=== PATIENT | female | born 1980 | race Caucasian/White ===

== ENCOUNTER → 2016-06-14 | Outpatient (CLI) | payer BC | LOC: M SMT 08:40 | PROVIDERS: ATTEND Advanced Practice Midwife | DX: Z13.79 Encounter for other screening for genetic and chromosomal anomalies (principal) ==

== ENCOUNTER → 2016-07-20 | Outpatient (CLI) | payer BC ==
--- NOTE | 2016-07-20 09:24 | REP ---
COMPLETE OB ULTRASOUND WITH DETAILED ANATOMY SCREENIN07/20/2016. Clinical history: Supervision of . Normal. Second trimester anatomy screen. By LMP, she is 20 weeks 1 day with EDC 12/06/2016. She reports a ultrasound at her OB office. I do not have that first trimester report. Findings. There is a single intrauterine gestation in vertex position. The cervix is 3.9 cm long and closed. Placenta is anterior without previa or abruption and shows grade zero maturation. Amniotic fluid volume is visually normal. biometry: BPD 5.2 cm 21 week 6 day HC 19.4 cm 21 weeks 4 days AC 16.2 cm 21 weeks 2 days FL 3.6 cm 21 weeks 3 days HL 3.2 cm 20 week 5 days CER 2.1 cm 20 weeks This gives average ultrasound age 21 weeks 1 day of EDC 11/29/2016. Estimated weight 422 grams or 14 ounces, is 97th percentile for dating based on LMP with 20 weeks 1 day EDC. heart rate 144 and regular. The anatomy screen shows cranial vault, lateral ventricles, choroid plexus, thalami, cavum septum pellucidum, cerebellum and cisterna magna, facial and profile views of the face and the lungs to be unremarkable. The four-chamber view is seen. There is an echogenic focus in the left ventricle, likely a calcification on the chordae tendineae. Ventricular outflow tracts, diaphragm, left-sided stomach bubble, three-vessel cord with cord insertion, kidneys and bladder, upper and lower extremities are all unremarkable. The spine is seen only in sagittal views with position limiting transverse view evaluation of the entire spine. Impression: 1. Single intrauterine gestation with average ultrasound age by today's study 21 weeks 1 day with EDC 11/29/2016, by LMP EDC 12/06/2016 and the estimated weight of 422 grams or 14 ounces is 97th percentile for dating based on that LMP. 2. Heart rate 144 and regular with a vertex position, closed cervix with 3.9 cm length and anterior grade zero placenta without previa or abruption. The amniotic fluid volume is normal. 3. Anatomy screen shows an echogenic focus in the left ventricle, likely on the chordae tendineae as a small calcification about 3 mm. This may be followed later in the second trimester. At that time, the spine should also be re-evaluated as transverse views could not be obtained today. No other finding. Signed by Clarence Issa MD 07/20/2016 05:38 P
== END ==
LOC: M RAD 07:01
PROVIDERS: ATTEND Specialist
DX: Z34.82 Encounter for supervision of other normal pregnancy, second trimester (principal)

== ENCOUNTER → 2016-08-10 | Outpatient (CLI) | payer BC ==
[2016-08-10 13:29] LABS: MEAN CORPUSCULAR HEMOGLOBIN 30.6 pg (27.0-33.0); MEAN CORPUSCULAR HGB CONC 33.3 g/dl (32.0-36.5); MEAN CORPUSCULAR VOLUME 91.9 fl (80.0-96.0); RED CELL DISTRIBUTION WIDTH 13.7 % (11.5-14.5)
--- NOTE | 2016-08-11 06:45 | REP ---
Clinical: Anatomical evaluation. Comparison: 07/20/2016 . Findings: Examination demonstrates a single live intrauterine in breech presentation. motion is identified by technologist. Placenta is noted anteriorly and grade zero without evidence for placenta previa or abruption. Amniotic fluid volume is normal. Cervix measures 3.9 cm in length and appears closed. No evidence for nuchal cord. Gestational age by LMP 23 weeks 1 day with MISSAEL 12/06/2016 . Gestational age by current measurements 24 weeks 3 days with MISSAEL 11/27/2016 . FHR equals 131 beats per minute. Estimated weight 710 grams ( 93rd percentile). Anatomical assessment demonstrates normal structures including cranium, choroid plexus, cavum, cerebellum/posterior fossa, facial features, lungs, four-chamber heart/ventricular outflow tracts, diaphragm, stomach, cord insertion/three-vessel cord, kidneys/bladder, spine, and extremities. Echogenic focus within the left cardiac ventricle likely prominent chordae tendineae. Impression: Single live intrauterine in breech presentation demonstrating appropriate interval growth. Prominent chordae tendineae. Anatomical assessment is otherwise complete and normal. Signed by Deepak Gonsales MD 08/11/2016 06:36 A
== END ==
LOC: M LAB 11:12 → M RAD 11:12
PROVIDERS: ATTEND Obstetrics & Gynecology
DX: Z34.82 Encounter for supervision of other normal pregnancy, second trimester (principal)

== ENCOUNTER → 2016-08-13 | Outpatient (CLI) | payer BC | LOC: M SMT 08-10 10:40 | PROVIDERS: ATTEND Obstetrics & Gynecology | DX: Z34.82 Encounter for supervision of other normal pregnancy, second trimester (principal) ==

== ENCOUNTER → 2016-11-09 | Outpatient (REF) | payer BC | LOC: M LAB REF 17:17 | PROVIDERS: ATTEND Advanced Practice Midwife | DX: Z34.83 Encounter for supervision of other normal pregnancy, third trimester (principal) ==

== ENCOUNTER 2016-12-01 05:16 | Inpatient (IN) | payer BC ==
[2016-12-01] VITALS (27 sets, daily range): BP systolic 84–135; BP diastolic 52–91
[2016-12-01] MEDS ORDERED: PENICILLIN G POTASSIUM IV 5 MU in D5W MINI-BAG PLUS 100 ML IV STA (06:02)
[2016-12-01] MEDS ORDERED: LACTATED RINGER'S 1000 ML IV STA (06:02)
[2016-12-01] MEDS ORDERED: PROMETHAZINE INJ 25 MG/ML VIAL (J2550) IV ONE (06:15)
[2016-12-01] MEDS ORDERED: BUTORPHANOL 2 MG/ML INJ (J0595) IV ONE (06:15)
[2016-12-01] MEDS: miSOPROStol 50 MCG 1/2 TAB (S0191) PO SCH ×2 (06:32→11:12)
[2016-12-01 06:37] LABS: MEAN CORPUSCULAR HGB CONC 33.4 g/dl (32.0-36.5); MEAN CORPUSCULAR VOLUME 86.9 fl (80.0-96.0); RED CELL DISTRIBUTION WIDTH 14.4 % (11.5-14.5); WHITE BLOOD COUNT 8.3 K/mm3 (4.0-10.0)
[2016-12-01] MEDS: PENICILLIN G POTASSIUM IV 2.5 MU in D5W 100 ML IV SCH ×4 (11:04→22:16)
--- NOTE | 2016-12-01 11:20 | HPE ---
DATE OF ADMISSION: 12/01/2016 36-year-old 2, para 0-0-1-0, estimated date of delivery 12/06/2016, who presents at 39 weeks 2 days with reports of rupture of membranes 0430 hours, clear fluid, reports irregular mild contractions. Fetus is active. Last normal menstrual period 03/01/2016 for estimated date of delivery (MISSAEL) 12/06/2016, sonogram at 9 weeks confirmed date. Anatomy scan within normal limits. Advanced maternal age [place] shows low risk. Appropriate care. OBSTETRICAL HISTORY: Miscarriage 2000. ALLERGIES: 1. She is allergic to ASPIRIN. MEDICAL/SURGICAL HISTORY: History of endometriosis. Laparoscopy. Appendectomy. Slow recovery from anesthesia. FAMILY HISTORY: Family history of hepatitis, asthma and autism. SOCIAL HISTORY: . Father of the baby present and supportive. Denies tobacco, alcohol, drugs or abuse. OBJECTIVE: Prepregnancy weight 184, total weight gain 25 pounds. A negative. Antibody negative. Received RhoGAM. Rubella immune. VDRL, hepatitis B, hepatitis C, HIV, gonorrhea and chlamydia all negative. [place] is low risk. Male fetus. 1-hour glucose 102 and group B strep is positive. Vital signs are stable. She is in no apparent distress. Heart rate is regular. Abdomen is soft, gravid, longitudinal lie. heart 135, moderate variability with accelerations. Rare contractions. Clear fluid draining per vagina. Positive Nitrazine, positive fern. Sterile vaginal exam fingertip, thick and high, difficult exam due to guarding. ASSESSMENT: Primipara at 39 plus gestation, premature rupture of membranes (PROM), category 1 tracing. PLAN: Admit. Group B strep prophylaxis. Misoprostol cervical ripening.
[2016-12-01] MEDS ORDERED: FENTANYL 2MCG/ML ROPIVACAINE 0.2% IN 0.9% NACL 200ML IVBAG As Ordered ONE (15:04)
[2016-12-01] MEDS ORDERED: ePHEDrine SULFATE 25 MG/5 ML(5MG/ML) SYRINGE As Ordered ONE (15:53)
[2016-12-01] MEDS ORDERED: diphenhydrAMINE INJ 50MG/ML VIAL (J1200) IV PRN (16:00)
[2016-12-01] MEDS ORDERED: ePHEDrine SULFATE 25 MG/5 ML(5MG/ML) SYRINGE IV PRN (16:00)
[2016-12-01] MEDS ORDERED: EPIDURAL COMMENT XX SCH (16:00)
[2016-12-01] MEDS ORDERED: FENTANYL/ROPIVACAINE/NACL BAG 200 ML EPIDURAL SCH (16:00)
[2016-12-01] MEDS ORDERED: REFRIGERATOR IV KEYS XX PRN (16:00)
[2016-12-01] MEDS ORDERED: LACTATED RINGER'S 1000 ML IV PRN (16:00)
[2016-12-01] MEDS ORDERED: NALOXONE INJ 0.4 MG/1 ML VIAL (J2310) IV PRN (16:00)
[2016-12-01] MEDS ORDERED: EPIDURAL/PCA KEYS XX PRN (16:00)
[2016-12-01] MEDS ORDERED: LR 1,000 ML IV SCH (16:22)
[2016-12-01] MEDS ORDERED: OXYTOCIN DRIP 30 UNITS in APPROPRIATE DILUENT 1 EA IV SCH (16:30)
[2016-12-02] VITALS (64 sets, daily range): BP systolic 83–128; BP diastolic 50–88
[2016-12-02] MEDS: ONDANSETRON 4MG/2ML VIAL (J2405) IV PRN ×2 (01:05→11:54)
[2016-12-02] MEDS: PENICILLIN G POTASSIUM IV 2.5 MU in D5W 100 ML IV SCH ×4 (02:15→16:30)
[2016-12-02] MEDS ORDERED: ceFAZolin 2 GM/D5W 50 ML IV BAG (J0690) As Ordered ONE (20:40)
[2016-12-02] MEDS ORDERED: BICITRA 30ML SOLN UDC As Ordered ONE (20:41)
[2016-12-02] MEDS ORDERED: LIDOCAINE 2% W/EPIN INJ 20ML **PRES FREE As Ordered ONE (20:41)
[2016-12-02] MEDS ORDERED: OXYTOCIN INJ 10 UNITS/ML VIAL (J2590) As Ordered ONE (21:16)
[2016-12-02] MEDS ORDERED: MORPHINE PRES-FREE INJ 10 MG/10 ML VIAL (J2274) As Ordered ONE (21:17)
[2016-12-02] MEDS ORDERED: KETOROLAC 60 MG/2 ML VIAL (J1885) As Ordered ONE (21:17)
[2016-12-02] MEDS ORDERED: NALBUPHINE HCL 10 MG/ML AMP (J2300) IV PRN (21:33)
[2016-12-02] MEDS ORDERED: METOCLOPRAMIDE INJ 10MG/2ML VIAL (J2765) IV PRN (21:33)
[2016-12-02] MEDS ORDERED: NALOXONE INJ 0.4 MG/1 ML VIAL (J2310) IV PRN ×2 (21:33)
[2016-12-02] MEDS ORDERED: ONDANSETRON 4MG/2ML VIAL (J2405) IV PRN ×3 (21:33→22:00)
[2016-12-02] MEDS: LR 1,000 ML IV SCH (21:55)
[2016-12-02] MEDS ORDERED: PERCOCET 5MG/325MG TAB PO PRN ×3 (22:00)
[2016-12-02] MEDS ORDERED: DOCUSATE SODIUM 100 MG CAP PO PRN (22:00)
[2016-12-02] MEDS ORDERED: OXYTOCIN DRIP 30 UNITS in APPROPRIATE DILUENT 1 EA IV ONE (22:00)
[2016-12-02] MEDS ORDERED: MEASLES,MUMPS,RUBELLA VACCINE INJ (MMR-II) (90707) SC SCH (22:00)
[2016-12-02] MEDS ORDERED: fentaNYL 100 MCG/2 ML INJECTION (J3010) IV PRN (22:00)
[2016-12-02] MEDS ORDERED: LR 1,000 ML IV SCH (22:00)
[2016-12-02] MEDS ORDERED: RHOGAM 300 MCG (1500 IU) INJ (J2790) IM SCH (22:00)
[2016-12-02] MEDS: NS 1,000 ML IV SCH (22:58)
[2016-12-02 23:14] LABS: MEAN CORPUSCULAR HEMOGLOBIN 29.6 pg (27.0-33.0); MEAN CORPUSCULAR HGB CONC 33.6 g/dl (32.0-36.5); MEAN CORPUSCULAR VOLUME 88.2 fl (80.0-96.0); RED CELL DISTRIBUTION WIDTH 15.1 % (11.5-14.5); WHITE BLOOD COUNT 12.5 K/mm3 (4.0-10.0)
[2016-12-03] VITALS (8 sets, daily range): BP systolic 82–145; BP diastolic 50–75
[2016-12-03] MEDS ORDERED: METHYLERGONOVINE MALEATE 0.2 MG/ML VIAL (J2210) IM STA (01:30)
[2016-12-03] MEDS ORDERED: miSOPROStol 200 MCG TAB (S0191) PR ONE (01:30)
[2016-12-03] MEDS ORDERED: miSOPROStol 200 MCG TAB (S0191) As Ordered ONE (03:35)
[2016-12-03] MEDS ORDERED: ACETAMINOPHEN 500 MG TAB As Ordered ONE (05:03)
[2016-12-03] MEDS ORDERED: ACETAMINOPHEN 500 MG TAB PO ONE (05:15)
[2016-12-03] MEDS: LR 1,000 ML IV SCH ×4 (05:55→19:21)
[2016-12-03 07:09] LABS: MEAN CORPUSCULAR HEMOGLOBIN 29.4 pg (27.0-33.0); MEAN CORPUSCULAR HGB CONC 34.4 g/dl (32.0-36.5); MEAN CORPUSCULAR VOLUME 85.5 fl (80.0-96.0); RED CELL DISTRIBUTION WIDTH 15.4 % (11.5-14.5); WHITE BLOOD COUNT 16.1 K/mm3 (4.0-10.0)
[2016-12-03] MEDS: PRENATAL VITAMINS CHEWABLE TABLET PO SCH (12:22)
--- NOTE | 2016-12-03 15:18 | RO ---
DATE OF PROCEDURE: 12/02/2016 PREOPERATIVE DIAGNOSES: 40+ weeks . Arrest of dilation. POSTOPERATIVE DIAGNOSES: 40+ weeks . Arrest of dilatation. PROCEDURE: Primary low transverse section. SURGEON: Guy Bhatt MD YOUTH DIRECTOR: Alex Lorenz MD ANESTHESIA: Epidural. ESTIMATED BLOOD LOSS: 600 mL. URINE OUTPUT: 100 mL. FINDINGS: 3696 gram or 8 pound 2 ounce male , Apgars 9 and 9 in the left occiput posterior position. Normal uterus, fallopian tubes and ovaries. OPERATIVE SUMMARY: The patient was taken to the operating room where epidural anesthesia was found to be adequate. She had a Abdi catheter placed already. She was prepped and draped in sterile fashion in supine position. Pfannenstiel skin incision was made with a scalpel and carried through to the fascia. The fascia was nicked and extended. The fascia was dissected off the rectus muscles. The rectus muscles were divided in the midline. The peritoneal cavity was entered. A bladder flap was created. A curvilinear incision was made in the lower uterine segment until clear fluid was noted. This was extended manually. The infant was delivered from the vertex position without difficulty. The cord was doubly clamped and cut. The infant was handed off to awaiting nurses. The placenta was expressed. The uterus exteriorized and cleared of clots and debris. The uterine incision was closed with #0 Vicryl in a running locked fashion. A second imbricated layer of #0 Vicryl was placed. The uterus was placed back in the abdominal cavity. The peritoneum was closed with #2-0 Vicryl in a running fashion. The fascia was closed with #0 Vicryl. The deep subcutaneous layer was irrigated and closed with #2-0 chromic, the skin was closed with #4-0 Monocryl subcuticular sutures. Sponge, instrument and needle counts were correct. MTDD
[2016-12-03] MEDS: ACETAMINOPHEN 500 MG TAB PO PRN (22:15)
[2016-12-03] MEDS: NS 1,000 ML IV SCH (22:58)
[2016-12-04 02:32] VITALS: BP 103/65
[2016-12-04] MEDS: IBUPROFEN 800 MG TAB PO SCH ×3 (06:00→22:00)
[2016-12-04 06:53] VITALS: BP 108/61
[2016-12-04] MEDS: PRENATAL VITAMINS CHEWABLE TABLET PO SCH (08:04)
[2016-12-04] MEDS: ACETAMINOPHEN 500 MG TAB PO PRN ×3 (08:05→21:22)
[2016-12-04 10:00] VITALS: BP 119/64
[2016-12-04] MEDS: LR 1,000 ML IV SCH ×2 (13:55→21:55)
[2016-12-04 18:00] VITALS: BP 115/62
[2016-12-04] MEDS: NS 1,000 ML IV SCH (22:58)
[2016-12-05] MEDS: ACETAMINOPHEN 500 MG TAB PO PRN (04:26)
[2016-12-05] MEDS: LR 1,000 ML IV SCH (04:27)
[2016-12-05] MEDS: IBUPROFEN 800 MG TAB PO SCH (06:00)
[2016-12-05 06:14] VITALS: BP 133/81
[2016-12-05] MEDS: PRENATAL VITAMINS CHEWABLE TABLET PO SCH (09:11)
--- NOTE | 2016-12-05 10:25 | DSES ---
DATE OF ADMISSION: 12/01/2016 DATE OF DISCHARGE: DISCHARGE DIAGNOSES: Primary section at term, postoperative day #3, stable condition, anemia. SURGEON: Guy Bhatt MD HISTORY: Lia is a 36-year-old, 2, para 1-0-1-1 now, was admitted to labor and delivery with premature rupture of membranes. Misoprostol was given, as well as intravenous (IV) Pitocin, and labor did ensue. She did utilize an epidural for her labor coping. She had arrest of dilation, and the decision was made to perform a primary section on 12/02/2016. Her surgery was uncomplicated. She delivered a live male 3969 grams, 8 pounds 2 ounces, scores 8 and 9. At the time of surgery, estimated blood loss was 600 mL. She did become hypotensive in the periord, and it was noted that she was anemic, and 2 units of packed red blood cells (RBCs) were ordered on 12/03/2016 after midnight. At this time, she does feel much better. Denies dizziness or palpitations or lightheadedness. She has been out of bed for self-care, coleman-care, infant care, and ambulation. She is voiding without difficulty. She is passing flatus. Her pain has been well controlled with by mouth ibuprofen and by mouth Tylenol only. She does request discharge today. Breast-feeding has been going well. OBJECTIVE: Temperature 97.3, pulse 86, respirations 18, blood pressure is 133/81. Admission complete blood count (CBC) on 12/01/2016 with a hemoglobin of 11.5, hematocrit 34.4. 12/03/2016 post red blood cell (RBC) transfusion, hemoglobin 10.7, hematocrit 31.1, and platelets 175. Her breasts are soft and nontender. Abdomen: Fundus firm at U, nontender. Her incision is well-approximated. There are no Steri-Strips in place. There is no redness. No edema. No warmth. No drainage. Her perineum is intact. Lochia rubra scant. Bilateral lower extremity with scant pitting edema. PLAN: Discharge the patient home today. She is to continue her over-the- counter medications: ibuprofen and Tylenol as needed for pain. She is to followup at [facility] for a 2-week incision check and an 8-week appointment. I did review discharge instructions that include breast care, incision care, coleman-care, pelvic rest, activity and lifting restrictions, and symptoms of mastitis, access to care, and other danger signs which to report. JINA
[2016-12-05] MEDS ORDERED: PRENTAB9 PO (11:59)
[2016-12-05] MEDS ORDERED: IBUP-1114 PO (12:00)
[2016-12-05] MEDS ORDERED: ACET50TA PO (12:01)
== END 2016-12-05 12:30 | disposition home or self-care (01) | DRG 540 ==
LOC: M LDO 05:16 → M LDI 06:16 → M OBS 12-02 23:28
PROVIDERS: ADMIT Advanced Practice Midwife; ATTEND Specialist
PROC: 10D00Z1 Extraction of Products of Conception, Low, Open Approach (ICD-10-PCS; principal; 2016-12-02)
PROC: 30253N1 (ICD-10-PCS; 2016-12-02)
DX: O42.02 Full-term premature rupture of membranes, onset of labor within 24 hours of rupture (principal); D64.9 Anemia, unspecified; Z3A.39 39 weeks gestation of pregnancy; O99.824 Streptococcus B carrier state complicating childbirth; O62.0 Primary inadequate contractions; O99.02 Anemia complicating childbirth; Z37.0 Single live birth

== ENCOUNTER → 2017-11-14 | Outpatient (REF) | payer BC ==
[2017-11-16 14:12] LABS: HPV HYBRID CAPTURE II Negative (Negative)
== END ==
LOC: M LAB REF 13:18
DX: Z12.4 Encounter for screening for malignant neoplasm of cervix (principal)
CPT/HCPCS: G0123

== ENCOUNTER → 2019-04-28 | Outpatient (REF) | payer BC ==
[~2019-04-28] MED LIST: IBUP-1114 PO; MAPA500T2 PO; PRENTAB9 PO
== END ==
LOC: M LAB REF 13:55
PROVIDERS: ATTEND Physician Assistant
DX: R05 Cough (principal)

== ENCOUNTER → 2019-07-09 | Outpatient (REF) | payer OTHER | LOC: M SFHCWAGY 13:15 | PROVIDERS: ATTEND Advanced Practice Midwife | DX: Z12.4 Encounter for screening for malignant neoplasm of cervix (principal) | CPT/HCPCS: 87624; G0123 ==

== ENCOUNTER → 2020-03-19 | Outpatient (CLI) | payer OTHER ==
[~2020-03-19] MED LIST changes: +MULT-40 PO
== END ==
LOC: M LABSMTC 10:02
PROVIDERS: ATTEND Anesthesiology
DX: Z01.812 Encounter for preprocedural laboratory examination (principal); Z20.828 Contact with and (suspected) exposure to other viral communicable diseases
CPT/HCPCS: C9803; U0003

== ENCOUNTER 2020-03-24 06:03 | Day surgery (SDC) | payer OTHER ==
[~2020-03-24] VITALS: Ht 160 cm; Wt 85.2 kg
[2020-03-24 06:41] LABS: HEMATOCRIT 40.7 % (36.0-47.0); HEMOGLOBIN 13.2 g/dl (12.0-15.5); MEAN CORPUSCULAR HEMOGLOBIN 29.7 pg (27.0-33.0); MEAN CORPUSCULAR HGB CONC 32.4 g/dl (32.0-36.5); MEAN CORPUSCULAR VOLUME 91.7 fl (80.0-96.0); PLATELET COUNT, AUTOMATED 276 10^3/uL (150-450); RED BLOOD COUNT 4.44 10^6/uL (4.00-5.40); WHITE BLOOD COUNT 5.2 10^3/uL (4.0-10.0)
[2020-03-24] MEDS ORDERED: ceFAZolin SOD 2 GM in IV 1 EA IV ONE (07:00)
[2020-03-24] MEDS ORDERED: LR 1,000 ML IV ONE (07:00)
[2020-03-24] MEDS ORDERED: BUPIVACAINE HCL 0.25% 30ML VIAL As Ordered ONE (07:18)
[2020-03-24] MEDS ORDERED: ONDANSETRON 4MG/2ML VIAL As Ordered ONE (07:18)
[2020-03-24] MEDS ORDERED: ROCURONIUM BROMIDE 50 MG/5 ML VIAL As Ordered ONE ×2 (07:18→08:25)
[2020-03-24] MEDS ORDERED: propofoL 200 MG/20 ML VIAL As Ordered ONE (07:18)
[2020-03-24] MEDS ORDERED: dexameTHASONE 4 MG/ML 1ML VIAL (J1100 PER 1MG) As Ordered ONE (07:18)
[2020-03-24] MEDS ORDERED: LIDOCAINE 2% 100MG/5ML SDV (FOR ANES.) As Ordered ONE (07:18)
[2020-03-24] MEDS ORDERED: MIDAZOLAM INJ 2MG/2ML VIAL (J2250 PER 1MG) As Ordered ONE (07:19)
[2020-03-24] MEDS ORDERED: fentaNYL 100 MCG/2 ML INJECTION (J3010) As Ordered ONE (07:19)
[2020-03-24] MEDS ORDERED: ACETAMINOPHEN 1000MG 100ML IV BTL (OFIRMEV) (J0131 PER 10MG) As Ordered ONE (07:51)
[2020-03-24] MEDS ORDERED: METOCLOPRAMIDE INJ 10MG/2ML VIAL (J2765 PER 1) As Ordered ONE (07:52)
[2020-03-24] MEDS ORDERED: KETOROLAC 60MG 2ML VIAL As Ordered ONE (07:53)
[2020-03-24] MEDS ORDERED: SUGAMMADEX SODIUM 500 MG/5 ML VIAL (BRIDION) As Ordered ONE (07:53)
--- NOTE | 2020-03-24 08:50 | ROOPDOC ---
[facility] Report Of Operation Report of Operation DATE OF PROCEDURE: 03/24/20 OPERATIVE REPORT: Preoperative diagnosis: pelvic pain, endometriosis. Postoperative diagnosis: Same. Procedure: Robotic-assisted laparoscopic hysterectomy, bilateral salpingectomy Surgeon: Nelsy Martinez M.D. Development Editor: Justine Veras NP EBL: 20 mL's. Urine output: 100 mL's. Operative summary: Patient was taken to the operating room where general endotracheal anesthesia was induced. She was prepped and draped in sterile fashion in the dorsal lithotomy position. A Abdi Catheter was placed. A V care uterine manipulator was placed. A Periumbilical incision was made with a scalpel. A Veress needle was placed through this incision. Intra-abdominal lo cation of Veress needle was assessed with saline filled syringe. A pneumoperitoneum was created. The Veress needle was removed. An 8 mm trocar using the Wellocitiesiport was inserted through this incision. Three 8 mm suprapubic ports were placed under direct visualization The patient was placed in Trendelenburg position. The da Collin surgical robot was docked to the ports. Using the fenestrated bipolar instrument and vessel sealer, the utero-ovarian ligaments and broad ligaments were coagulated and incised. The round ligaments were coagulated and incised. The anterior and posterior leaves of the broad ligament were . Bladder flap was created. The uterine vessels were coagulated and incised using monopolar Endo Lilly. A colpotomy was created in the upper vagina at the level of the V care Cup. The specimen including the uterus, cervix, and fallopian tubes was removed through the vagina. The vaginal cuff was closed with #1 V lock suture in running fashion. All instruments removed. The skin was closed with 4-0 Monocryl subcuticular sutures. Justine Veras NP assisted with all aspects of the procedure. She helped position the patient. She helped insert the ports and manipulate the uterus. She removed the specimen. NELSY MARTINEZ MD Mar 24, 2020 08:50
[2020-03-24] MEDS ORDERED: DOCUSATE SODIUM 100 MG CAP PO SCH (09:00)
[2020-03-24] MEDS ORDERED: ONDANSETRON 4MG/2ML VIAL IV PRN ×2 (09:15→09:30)
[2020-03-24] MEDS ORDERED: fentaNYL 100 MCG/2 ML INJECTION (J3010) IV PRN (09:15)
[2020-03-24] MEDS ORDERED: oxyCODONE 5MG TAB PO PRN (09:15)
[2020-03-24] MEDS ORDERED: MEPERIDINE INJ 25 MG/ML VIAL (J2175) IV PRN (09:15)
[2020-03-24] MEDS ORDERED: LR 1,000 ML IV SCH ×2 (09:15→13:15)
[2020-03-24] MEDS ORDERED: METOCLOPRAMIDE INJ 10MG/2ML VIAL (J2765 PER 1) IV PRN (09:15)
[2020-03-24] MEDS ORDERED: PERCOCET 5MG/325MG TAB PO PRN ×2 (09:30)
[2020-03-24 10:00] VITALS: BP 109/72
[2020-03-24 10:30] VITALS: BP 108/72
[2020-03-24 11:30] VITALS: BP 111/70
[2020-03-24 12:30] VITALS: BP 111/74
[2020-03-24 13:30] VITALS: BP 110/70
[2020-03-24 14:28] VITALS: BP 108/74
[2020-03-24] MEDS ORDERED: MORPHINE 4 MG/ML 1ML VIAL/SYRINGE (J2270) IV PRN (14:45)
[2020-03-24] MEDS ORDERED: KETOROLAC 30 MG/ML 1ML VIAL IV PRN (14:45)
== END 2020-03-24 19:55 | disposition home or self-care (01) ==
LOC: M SDC 06:03 → M MS5PR 09:55 → M SDC 19:55
PROVIDERS: ATTEND Specialist
DX: R10.2 Pelvic and perineal pain (principal); N72 Inflammatory disease of cervix uteri; N88.8 Other specified noninflammatory disorders of cervix uteri; Z88.8 Allergy status to other drugs, medicaments and biological substances
CPT/HCPCS: 36415; 58571; 81025; 85027; 86850; 86900; 86901; 88307; J0131; J0690; J1100; J1885; J2250; J2405; J2765; J3010; S2900

== ENCOUNTER → 2020-05-09 | Outpatient (CLI) | payer SELFPAY | LOC: M LABSMTC 10:13 | PROVIDERS: ATTEND Pediatrics | DX: Z20.828 Contact with and (suspected) exposure to other viral communicable diseases (principal) ==

== ENCOUNTER → 2024-10-03 | Outpatient (CLI) | payer OTHER | LOC: M WHC 06:39 | PROVIDERS: ATTEND Physician Assistant Medical | DX: Z12.31 Encounter for screening mammogram for malignant neoplasm of breast (principal); R92.313 Mammographic fatty tissue density, bilateral breasts ==

== ENCOUNTER → 2024-11-14 | Outpatient (REF) | payer OTHER ==
[2024-11-14 17:36] LABS: ALKALINE PHOSPHATASE 47 U/L (35-104); ALT/SGPT 19 U/L (7.0-40); AST/SGOT 18 U/L (<34); BILIRUBIN,TOTAL 0.5 MG/DL (0.3-1.2); BLOOD UREA NITROGEN 14 MG/DL (9-23); CALCIUM LEVEL 9.1 MG/DL (8.5-10.1); CARBON DIOXIDE LEVEL 26 MMOL/L (20-31); CHLORIDE LEVEL 107 MMOL/L (98-107); CHOLESTEROL LEVEL 213 MG/DL (<200); CREATININE FOR GFR 0.79 MG/DL (0.55-1.30); GLOMERULAR FILTRATION RATE > 90.0 (>58); GLUCOSE, FASTING 79 MG/DL (60-100); HDL CHOLESTEROL 48.4 MG/DL (>40); LDL CHOLESTEROL 138.4 MG/DL (<100); NON-HDL-C 164.6 MG/DL; POTASSIUM SERUM 4.7 MMOL/L (3.5-5.1); SODIUM LEVEL 141 MMOL/L (136-145); TRIGLYCERIDES LEVEL 131 MG/DL (<150)
[2024-11-14 18:11] LABS: HEPATITIS C VIRUS ABY INDEX 0.06 INDEX (<0.8)
== END ==
LOC: M SFHCCAPE 07:15
PROVIDERS: ATTEND Physician Assistant Medical
DX: Z76.89 Persons encountering health services in other specified circumstances (principal); L98.9 Disorder of the skin and subcutaneous tissue, unspecified; Z11.59 Encounter for screening for other viral diseases; Z13.220 Encounter for screening for lipoid disorders